=== PATIENT | male | born 1990 | race Caucasian/White ===

== ENCOUNTER 2017-06-16 15:58 | Emergency (ER) | payer OTHER ==
--- NOTE | ~2017-06-16 | ER ---
PATIENT'S NAME: DILMA RIZO [facility] AGE: 26 Y [address] ROOM: [place] [id number] LOCATION: ED ADMIT DATE: 06/16/2017 ER/Outpatient Report DISCHARGE DATE: 06/16/2017 FAMILY PHYSICIAN: Enrique Robin MD ATTENDING PHYSICIAN: Sejal Calderón Time of Arrival: 1603 hours. Time of Exam: 1615 hours. CHIEF COMPLAINT: Sore throat. HISTORY OF PRESENT ILLNESS: The patient states he has had a sore throat for the past 24 hours. He has felt feverish. Does have some pain with swallowing. Denies having had a runny nose, cough, or congestion. ALLERGIES: HE HAS NO KNOWN ALLERGIES. CURRENT MEDICATIONS: He has been taking Tylenol p.r.n. PAST MEDICAL HISTORY: None. PAST SURGERIES: [place] teeth. SOCIAL HISTORY: He smokes a pack per day and has for the last 6 years. Denies use of street drugs. He does drink alcohol on the weekends. REVIEW OF SYSTEMS: All negative other than those mentioned in the HPI. PHYSICAL EXAMINATION: VITAL SIGNS: He weighed 47.1 kg. Blood pressure 139/66, pulse of 82, respirations 16, temperature of 98.4, and O2 saturation was 98% on room air. GENERAL: He is awake, alert, and oriented x4. SKIN: [place], warm, and dry. RESPIRATIONS: Even and nonlabored. HEENT: TMs are pearly raphael. Nasal is boggy. Oropharynx: Tonsils are red posteriorly. They are enlarged at 2+. There is exudate bilaterally, that is grayish yellow color. PATIENT'S NAME: DILMA RIZO [facility] AGE: 26 Y [address] ROOM: [place] [id number] LOCATION: [facility] ADMIT DATE: 06/16/2017 ER/Outpatient Report DISCHARGE DATE: 06/16/2017 FAMILY PHYSICIAN: Enrique Robin MD ATTENDING PHYSICIAN: Sejal Calderón NECK: Supple. Positive anterior cervical nodes. LUNGS: Lung sounds are clear throughout. HEART: Regular rate and rhythm. ABDOMEN: Soft, nondistended. Bowel sounds are present. EMERGENCY ROOM COURSE: Strep screen was obtained, it was negative. The patient was given a shot of Rocephin 1000 mg IM. IMPRESSION: Tonsillitis. PLAN: Home, rest, fluids. Tylenol or ibuprofen for fever and discomfort. Prescription was given for Augmentin 875 b.i.d. Did discuss with the patient the importance of having his throat rechecked tomorrow out of concern that he may be developing an abscess. If at any time tonight he has problems breathing or not able to swallow, he is to return to the ER. He verbalized understanding. CORAZON MA APRN FOR MD KEY YOO/dian /[id number] d: 06/16/17 2329 t: 06/24/17 1225, OUTPATIENT REPORT
== END 2017-06-16 17:10 | disposition disaster alternative care site (69) ==
LOC: GMED 15:58
DX: J03.90 Acute tonsillitis, unspecified (principal); F17.210 Nicotine dependence, cigarettes, uncomplicated
CPT/HCPCS: J0696